=== PATIENT | male | born 1965 | race Caucasian/White ===

== ENCOUNTER 2017-11-13 06:55 | Day surgery (SDC) | payer OTHER | END 2017-11-13 13:30 | disposition home or self-care (01) | LOC: CIR.AMB 06:55 | DX: M75.111 Incomplete rotator cuff tear or rupture of right shoulder, not specified as traumatic (principal); M24.111 Other articular cartilage disorders, right shoulder ==

== ENCOUNTER → 2021-07-05 | Outpatient (CLI) | payer OTHER | END | disposition home or self-care (01) | LOC: RAD 10:33 | PROVIDERS: ATTEND General Practice | DX: M25.561 Pain in right knee (principal) ==